=== PATIENT | female | born 1995 | race Caucasian/White ===

== ENCOUNTER 2017-05-21 21:57 | Emergency (ER) | payer SELFPAY ==
[~2017-05-21] VITALS: Ht 175.3 cm; Wt 118.2 kg
[2017-05-21 22:45] LABS: INFLUENZA A NEGATIVE; INFLUENZA B NEGATIVE; STREP SCREEN NEGATIVE
[2017-05-22 00:44] VITALS: BP 124/71; PULSE 110; TEMP 99.6
== END 2017-05-22 00:43 | disposition home or self-care (01) ==
LOC: COL.ER 21:57
PROVIDERS: Emergency Medicine
DX: R50.9 Fever, unspecified (principal)
CPT/HCPCS: J7030

== ENCOUNTER 2018-02-11 21:11 | Emergency (ER) | payer SELFPAY ==
[~2018-02-11] VITALS: Ht 175.3 cm; Wt 163.6 kg
[2018-02-11 21:27] VITALS: BP 135/69; TEMP 98.1
[2018-02-11 22:33] VITALS: PULSE 90
== END 2018-02-11 22:35 | disposition home or self-care (01) ==
LOC: COL.ER 21:11
DX: J06.9 Acute upper respiratory infection, unspecified (principal)

== ENCOUNTER 2018-10-22 19:19 | Emergency (ER) | payer OTHER ==
[~2018-10-22] VITALS: Ht 175.3 cm; Wt 118.2 kg
[2018-10-22 19:22] VITALS: BP 128/76; TEMP 98.5
[2018-10-22 19:57] LABS: STREP SCREEN NEGATIVE
[2018-10-22] MEDS ORDERED: AMOXICILLIN 50500 MG PO (20:44)
[2018-10-22 20:57] VITALS: PULSE 94
[2018-10-22] MEDS ORDERED: AMOXIL250 M1 PO (21:04)
== END 2018-10-22 21:09 | disposition home or self-care (01) ==
LOC: COL.ER 19:19
PROVIDERS: Physician Assistant
DX: J02.9 Acute pharyngitis, unspecified (principal)
CPT/HCPCS: J1100

== ENCOUNTER 2020-02-07 19:50 | Emergency (ER) | payer SELFPAY ==
[~2020-02-07] VITALS: Ht 175.3 cm; Wt 122.7 kg
[~2020-02-07 19:50] MED LIST: AMOXICILLIN 50500 MG PO; AMOXIL250 M1 PO
[2020-02-07 19:55] VITALS: BP 114/79; TEMP 99.4
[2020-02-07 20:58] LABS: BASO % 0.4 % (0.0-2.0); EOS # 0.1 (0.0-0.7); EOS % 0.9 % (0-4.0); GRAN # 6.6 (1.4-6.5); GRAN % 61.3 % (42.2-75.2); HEMATOCRIT 38.5 % (37.0-47.0); HEMOGLOBIN 12.6 g/dl (12.5-16.0); LYMPH # 3.3 (1.2-3.4); LYMPH % 30.8 % (20.0-51.0); MEAN CELL VOLUME 91 fl (80.0-100.0); MEAN CORPUSCULAR HEMOGLOBIN 30 pg (27.0-31.0); MEAN CORPUSCULAR HGB CONC 33 g/dl (33.0-37.0); MEAN PLATELET VOLUME 9.8 fl (7.4-10.4); MONO # 0.7 (0.1-0.6); MONO % 6.2 % (1.7-9.3); PLATELET COUNT 314 K/mm3 (130-400); RED BLOOD COUNT 4.24 M/mm3 (4.10-5.30); REDCELL DISTRIBUTION WIDTH-CV 13.3 % (11.5-14.5)
[2020-02-07 21:15] LABS: ALBUMIN 4.5 gm/dL (3.5-5.0); BILIRUBIN,TOTAL 0.8 mg/dL (0.0-1.0); CALCIUM 9.6 mg/dL (8.4-10.2); CREATININE, serum 0.79 (0.52-1.25); POTASSIUM 3.7 mmol/L (3.4-5.0); TOTAL PROTEIN 8.2 gm/dL (6.4-8.2)
[2020-02-07 22:29] VITALS: PULSE 98
== END 2020-02-07 22:29 | disposition home or self-care (01) ==
LOC: COL.ER 19:50
PROVIDERS: Emergency Medicine
DX: R51 Headache (principal); R42 Dizziness and giddiness; E66.9 Obesity, unspecified; Z68.39 Body mass index [BMI] 39.0-39.9, adult
CPT/HCPCS: J1885

== ENCOUNTER 2020-02-09 10:31 | Emergency (ER) | payer SELFPAY ==
[~2020-02-09] VITALS: Ht 175.3 cm; Wt 77.3 kg
[2020-02-09 10:37] VITALS: TEMP 98.5
[2020-02-09] MEDS ORDERED: IMITREX100 MG PO (12:45)
[2020-02-09 13:25] VITALS: BP 127/79; PULSE 65
== END 2020-02-09 13:28 | disposition home or self-care (01) ==
LOC: COL.ER 10:31
DX: G43.909 Migraine, unspecified, not intractable, without status migrainosus (principal)
CPT/HCPCS: J1200; J1885; J2765; J7030

== ENCOUNTER → 2020-11-16 | Outpatient (CLI) | payer OTHER ==
[~2020-11-16] MED LIST changes: +IMITREX100 MG PO
== END ==
LOC: COL.RAD 11:34
DX: N83.202 Unspecified ovarian cyst, left side (principal); N93.9 Abnormal uterine and vaginal bleeding, unspecified

== ENCOUNTER → 2021-12-24 | Outpatient (CLI) | payer MEDICAID | LOC: DIA.ED 07:46 | DX: O24.419 Gestational diabetes mellitus in pregnancy, unspecified control (principal) | CPT/HCPCS: G0108 ==

== ENCOUNTER 2022-01-15 13:29 | Outpatient (CLI) | payer MEDICAID ==
[~2022-01-15] VITALS: Ht 175.3 cm; Wt 134.1 kg
--- NOTE | 2022-01-15 13:20 | NUR ---
PT PRESENTS TO LABOR AND DELIVERY FLOOR VIA EMS COMPLAINING OF SPONTANEOUS RUPTURE OF MEMBRANES @1300. PT DENIES DECREASED MOVEMENT OR CONTRACTIONS. DOES COMPLAIN OF SOME SPOTTING IN THE AMNIOTIC FLUID.
--- NOTE | 2022-01-15 13:25 | NUR ---
Presents to labor and delivery via ambulance. Assisted to bed by two men. Gown on. Vag check done with amniotest. Positive test noted, light reddish color fluid noted on pads. Assessment done, questions offered and answered.
[2022-01-15 14:00] VITALS: BP 137/96; PULSE 99; TEMP 98.1
--- NOTE | 2022-01-15 14:20 | NUR ---
1420 DR GRAYSON HERE. DISCUSSING PLAN OF CARE IN PATIENTS ROOM 1429 DR GRAYSON DOING ULTRASOUND. VERTEX PRESENTATION CONFIRMED. DR GRAYSON ON UNIT FROM [id number]
[2022-01-15 14:30] VITALS: BP 133/96; PULSE 108
[2022-01-15 15:00] VITALS: BP 135/85; PULSE 93
== END 2022-01-15 15:30 | disposition critical access hospital (66) ==
LOC: LDRO 13:29 → LDR 13:40 → LDRO 15:30
DX: Z34.90 Encounter for supervision of normal pregnancy, unspecified, unspecified trimester (principal); Z3A.00 Weeks of gestation of pregnancy not specified
CPT/HCPCS: OP; J0290; J0702; J7120